=== PATIENT | female | born 1975 | race African-American/Black ===

== ENCOUNTER 2018-04-30 05:21 | Emergency (ER) | payer BC ==
[~2018-04-30] VITALS: Ht 175.3 cm; Wt 57.6 kg
[2018-04-30 05:24] VITALS: BP 156/109
== END 2018-04-30 05:57 | disposition home or self-care (01) ==
LOC: ER 05:25
DX: R22.0 Localized swelling, mass and lump, head (principal); T36.8X5A Adverse effect of other systemic antibiotics, initial encounter; Z60.2 Problems related to living alone; Z98.890 Other specified postprocedural states; Z90.710 Acquired absence of both cervix and uterus; Y92.89 Other specified places as the place of occurrence of the external cause
CPT/HCPCS: 99281; A4606; Z7610; Z7502

== ENCOUNTER 2021-09-01 18:06 | Emergency (ER) | payer BC ==
[~2021-09-01] VITALS: Ht 175.3 cm; Wt 60.8 kg
--- NOTE | 2021-09-01 18:23 | NUR ---
PT CAME TO ER C/ R KNEE AND L ANKLE PAIN S/P TRIPPING TODAY. R KNEE ABRASION, QUARTER-SIZED. LEFT ANKLE SWOLLEN. SKIN IS WARM AND DRY. ICE PACKS PLACED ON KNEE AND ANKLE.
[2021-09-01 18:53] VITALS: BP 182/118
[2021-09-01] MEDS ORDERED: IBUP-1955 PO (19:37)
[2021-09-01] MEDS ORDERED: BACI30OI9 TP (19:37)
== END 2021-09-01 20:26 | disposition home or self-care (01) ==
LOC: ER 18:12
DX: S80.211A Abrasion, right knee, initial encounter (principal); S90.512A Abrasion, left ankle, initial encounter; Z98.890 Other specified postprocedural states; Z60.2 Problems related to living alone; Z79.899 Other long term (current) drug therapy; W01.0XXA Fall on same level from slipping, tripping and stumbling without subsequent striking against object, initial encounter; Y93.01 Activity, walking, marching and hiking; Y92.89 Other specified places as the place of occurrence of the external cause; Y99.8 Other external cause status
CPT/HCPCS: 73564-TC; 73610-TC

== ENCOUNTER 2021-09-07 16:06 | Emergency (ER) | payer BC ==
[~2021-09-07] VITALS: Ht 175.3 cm; Wt 59.9 kg
[~2021-09-07 16:06] MED LIST: BACI30OI9 TP; IBUP-1955 PO
--- NOTE | 2021-09-07 16:41 | NUR ---
BIB SELF C/O R KNEE SWELLING AND PAIN S/P GLF LAST SUNDAY.SEEN LAST SUNDAY FOR SAME CC. RATES PAIN 04/14. WILL CONTINUE TO MONITOR THE PATIENT.
--- NOTE | 2021-09-07 17:24 | NUR ---
KHARI LANDA AT BEDSIDE FOR EVAL.
[2021-09-07] MEDS ORDERED: CEPH500T PO (17:44)
[2021-09-07] MEDS ORDERED: SULF1TAB48 PO (17:44)
[2021-09-07] MEDS ORDERED: TDAP [DIPH/PERTUSSIS/TET] 0.5 ML VIAL IM ONE ×2 (17:59→18:00)
[2021-09-07] MEDS ORDERED: BACI/NEOM/POLY B OINT PKT 1 UDPKT PACKET TP ONE (18:00)
[2021-09-07 18:05] VITALS: BP 131/87
--- NOTE | 2021-09-07 18:05 | NUR ---
Patient discharged to home in stable condition. Written and verbal after care instructions given. Patient verbalizes understanding of instruction.
== END 2021-09-07 18:05 | disposition home or self-care (01) ==
LOC: ER 16:10
DX: S80.211A Abrasion, right knee, initial encounter (principal); L03.115 Cellulitis of right lower limb; Z98.890 Other specified postprocedural states; Z60.2 Problems related to living alone; Z79.899 Other long term (current) drug therapy; W01.0XXA Fall on same level from slipping, tripping and stumbling without subsequent striking against object, initial encounter; Y93.89 Activity, other specified; Y92.89 Other specified places as the place of occurrence of the external cause; Y99.8 Other external cause status
CPT/HCPCS: 90471; 90715; 99283; A6403

== ENCOUNTER 2022-12-28 23:14 | Emergency (ER) | payer BC, OTHER ==
[~2022-12-28] VITALS: Ht 172.7 cm; Wt 60.3 kg
[~2022-12-28 23:14] MED LIST changes: +CEPH500T PO; +SULF1TAB48 PO
[2022-12-29 00:25] VITALS: BP 158/98
--- NOTE | 2022-12-29 00:25 | NUR ---
BIBSELF FROM HOME C/O SOB X1 DAY. RUQ ABD PAIN; DISCOLORATION NOTED. TOLERATING R/A WELL AT 100%.
--- NOTE | 2022-12-29 00:28 | NUR ---
DR. ROSELYN GARCIA AT PT'S BEDSIDE
--- NOTE | 2022-12-29 00:38 | NUR ---
Patient discharged to home in stable condition. Written and verbal after care instructions given. Patient verbalizes understanding of instruction. pt ambulatory with a steady gait
== END 2022-12-29 01:27 | disposition home or self-care (01) ==
LOC: ER 23:15
DX: R21 Rash and other nonspecific skin eruption (principal); Z71.1 Person with feared health complaint in whom no diagnosis is made; Z90.710 Acquired absence of both cervix and uterus; Z60.2 Problems related to living alone; Z79.899 Other long term (current) drug therapy